=== PATIENT | male | born 1955 | race Caucasian/White ===

== ENCOUNTER 2017-12-15 18:25 | Emergency (ER) | payer OTHER ==
[~2017-12-15] VITALS: Ht 177.8 cm; Wt 74.8 kg
[2017-12-15 19:05] VITALS: Ht 177.8 cm; Wt 74.8 kg
[2017-12-15 21:40] LABS: BASOPHIL % 1.3 % (0-2); PLATELET COUNT 127 x10^3mcL (130-400); RED CELL DISTRIBUTION WIDTH 15.3 % (11.5-14.5)
[2017-12-15 21:47] LABS: CALCIUM 8.2 mg/dL (8.5-10.1); CARBON DIOXIDE 27.7 mmol/L (21-32); CHLORIDE SERUM 104 mmol/L (98-107); CREATININE SERUM 0.6 mg/dL (0.7-1.3); GFR1 > 60 mL/min; GLUCOSE SERUM 82 mg/dL (74-106); POTASSIUM SERUM 3.6 mmol/L (3.5-5.1); SODIUM SERUM 144 mmol/L (136-145)
[2017-12-15 22:02] LABS: ALBUMIN 3.4 g/dL (3.4-5.0); ALKALINE PHOSPHATASE 100 U/L (46-116); ALT/SGPT 51 U/L (16-63); AST/SGOT 113 U/L (15-37); BILIRUBIN TOTAL 0.6 mg/dL (0.20-1.00); FREE T4 1.07 ng/dL (0.76-1.46); TOTAL PROTEIN, SERUM 7.6 g/dL (6.4-8.2)
[2017-12-16 00:50] VITALS: BP 115/65
== END 2017-12-16 00:50 | disposition short-term general hospital (02) ==
LOC: ED 18:25
PROVIDERS: Emergency Medicine
DX: S06.5X0A Traumatic subdural hemorrhage without loss of consciousness, initial encounter (principal); F10.129 Alcohol abuse with intoxication, unspecified; W18.30XA Fall on same level, unspecified, initial encounter; Y93.89 Activity, other specified; Y99.8 Other external cause status; Y92.89 Other specified places as the place of occurrence of the external cause
CPT/HCPCS: 36415; 83880; 84439; 87804; 90715; G0480

== ENCOUNTER 2018-01-02 18:16 | Emergency (ER) | payer OTHER ==
[~2018-01-02] VITALS: Ht 185.4 cm; Wt 81.6 kg
[2018-01-02 19:56] LABS: PLATELET COUNT 161 x10^3mcL (130-400)
[2018-01-02 19:57] LABS: BASOPHIL % 2.2 % (0-2)
[2018-01-02 20:04] LABS: ALKALINE PHOSPHATASE 108 U/L (46-116); ALT/SGPT 49 U/L (16-63); AST/SGOT 93 U/L (15-37); BILIRUBIN TOTAL 0.67 mg/dL (0.20-1.00); CALCIUM 8.3 mg/dL (8.5-10.1); CARBON DIOXIDE 27.5 mmol/L (21-32); CHLORIDE SERUM 105 mmol/L (98-107); CREATININE SERUM 0.7 mg/dL (0.7-1.3); GFR1 > 60 mL/min; GLUCOSE SERUM 79 mg/dL (74-106); MAGNESIUM 2.3 mg/dL (1.8-2.4); SODIUM SERUM 143 mmol/L (136-145); TOTAL PROTEIN, SERUM 7.5 g/dL (6.4-8.2)
[2018-01-02 20:06] LABS: ALBUMIN 3.2 g/dL (3.4-5.0)
[2018-01-02 20:08] LABS: POTASSIUM SERUM 2.9 mmol/L (3.5-5.1)
[2018-01-03 08:26] LABS: CALCIUM 7.7 mg/dL (8.5-10.1); CARBON DIOXIDE 24.6 mmol/L (21-32); CHLORIDE SERUM 103 mmol/L (98-107); CREATININE SERUM 0.6 mg/dL (0.7-1.3); GFR1 > 60 mL/min; GLUCOSE SERUM 115 mg/dL (74-106); POTASSIUM SERUM 3.5 mmol/L (3.5-5.1); SODIUM SERUM 142 mmol/L (136-145)
[2018-01-03 09:19] LABS: MAGNESIUM 2.1 mg/dL (1.8-2.4); PHOSPHOROUS 2.5 mg/dL (2.5-4.9)
[2018-01-03 09:21] LABS: CHOLESTEROL/HDL RATIO 1.6
[2018-01-03 09:32] LABS: T3 TOTAL 0.73 ng/mL
[2018-01-03 09:46] LABS: FREE T4 0.87 ng/dL (0.76-1.46)
[2018-01-03 10:14] VITALS: BP 142/74
== END 2018-01-03 10:15 | disposition home or self-care (01) ==
LOC: ED 18:16
PROVIDERS: Emergency Medicine; Family Medicine
DX: S01.81XA Laceration without foreign body of other part of head, initial encounter (principal); M41.9 Scoliosis, unspecified; F10.129 Alcohol abuse with intoxication, unspecified; W19.XXXA Unspecified fall, initial encounter; Y93.89 Activity, other specified; Y92.89 Other specified places as the place of occurrence of the external cause; Y99.8 Other external cause status
CPT/HCPCS: 83880; 84439; G0480; J3411; J3475; J3490; J7030; Q0092

== ENCOUNTER 2018-03-12 11:27 | Emergency (ER) | payer OTHER ==
[~2018-03-12] VITALS: Ht 182.9 cm; Wt 74.8 kg
[2018-03-12 11:31] VITALS: Ht 182.9 cm; Wt 74.8 kg
[2018-03-12 14:31] VITALS: BP 112/72
== END 2018-03-12 14:32 | disposition home or self-care (01) ==
LOC: ED 11:27
DX: S60.411A Abrasion of left index finger, initial encounter (principal); X58.XXXA Exposure to other specified factors, initial encounter; Y93.89 Activity, other specified; Y92.89 Other specified places as the place of occurrence of the external cause; Y99.8 Other external cause status
CPT/HCPCS: 90715; Q0092

== ENCOUNTER 2018-03-25 17:36 | Emergency (ER) | payer OTHER ==
[~2018-03-25] VITALS: Ht 182.9 cm; Wt 70.3 kg
[2018-03-25 17:49] VITALS: Ht 182.9 cm; Wt 70.3 kg
[2018-03-25 20:09] VITALS: BP 96/55
== END 2018-03-25 20:09 | disposition home or self-care (01) ==
LOC: ED 17:36
DX: L97.929 Non-pressure chronic ulcer of unspecified part of left lower leg with unspecified severity (principal)
CPT/HCPCS: J1885

== ENCOUNTER 2018-04-05 11:49 | Inpatient (IN) | payer OTHER ==
[~2018-04-05] VITALS: Ht 182.9 cm; Wt 75.7 kg
[2018-04-05 13:26] LABS: ALKALINE PHOSPHATASE 141 U/L (46-116); ALT/SGPT 32 U/L (16-63); AST/SGOT 55 U/L (15-37); BILIRUBIN TOTAL 0.33 mg/dL (0.20-1.00); CARBON DIOXIDE 29.2 mmol/L (21-32); CHLORIDE SERUM 104 mmol/L (98-107); CREATININE SERUM 0.6 mg/dL (0.7-1.3); GFR1 > 60 mL/min; GLUCOSE SERUM 106 mg/dL (74-106); SODIUM SERUM 143 mmol/L (136-145); TOTAL PROTEIN, SERUM 6.7 g/dL (6.4-8.2)
[2018-04-05 13:27] LABS: ALBUMIN 2.2 g/dL (3.4-5.0); CHOLESTEROL 102 mg/dL (<200); HDL CHOLESTEROL 80 mg/dL (40-60); POTASSIUM SERUM 2.9 mmol/L (3.5-5.1)
[2018-04-05 13:40] LABS: FREE T4 0.99 ng/dL (0.76-1.46); FREE THYROXINE INDEX 2.2 ug/dL (1.4-4.5); T4(THYROXINE) 5.7 ug/dL (4.7-13.3)
[2018-04-05 13:48] LABS: BASOPHIL % 0.7 % (0-2); PLATELET COUNT 195 x10^3mcL (130-400); T3 TOTAL 0.85 ng/mL
[2018-04-05 14:01] LABS: RED CELL DISTRIBUTION WIDTH 16.4 % (11.5-14.5)
[2018-04-05 16:41] LABS: TOTAL IRON BINDING CAPACITY 277 ug/dL (250-450)
[2018-04-05 16:45] LABS: IRON 21 ug/dL (65-170)
[2018-04-05 16:56] VITALS: BP 100/66
[2018-04-05 16:56] LABS: RED BLOOD CELLS 2.68 M/mm3 (4.52-5.90)
[2018-04-05 16:59] LABS: MAGNESIUM 2.7 mg/dL (1.8-2.4); PHOSPHOROUS 3.7 mg/dL (2.5-4.9)
[2018-04-05 20:48] VITALS: BP 95/51
[2018-04-05 21:55] LABS: CALCIUM 7.4 mg/dL (8.5-10.1); CARBON DIOXIDE 29.5 mmol/L (21-32); CHLORIDE SERUM 110 mmol/L (98-107); CREATININE SERUM 0.4 mg/dL (0.7-1.3); GFR1 > 60 mL/min; GLUCOSE SERUM 84 mg/dL (74-106); SODIUM SERUM 145 mmol/L (136-145)
[2018-04-05 21:58] LABS: POTASSIUM SERUM 2.8 mmol/L (3.5-5.1)
[2018-04-06 05:43] VITALS: BP 105/53
[2018-04-06 05:54] LABS: microscopic required? NO
[2018-04-06 06:14] LABS: UA SPECIFIC GRAVITY 1.015 (1.005-1.035); urine erythrocyte NEGATIVE (NEGATIVE)
[2018-04-06 06:26] LABS: AMPHETAMINE QUAL UR NONE DETECTED (NEG <=1000)
[2018-04-06 06:31] LABS: CALCIUM 7.7 mg/dL (8.5-10.1); CARBON DIOXIDE 27.2 mmol/L (21-32); CHLORIDE SERUM 116 mmol/L (98-107); CREATININE SERUM 0.5 mg/dL (0.7-1.3); GFR1 > 60 mL/min; GLUCOSE SERUM 77 mg/dL (74-106); MAGNESIUM 2.4 mg/dL (1.8-2.4); PHOSPHOROUS 2.6 mg/dL (2.5-4.9); POTASSIUM SERUM 4.6 mmol/L (3.5-5.1); SODIUM SERUM 145 mmol/L (136-145)
[2018-04-06 06:47] LABS: CHOLESTEROL 90 mg/dL (<200); CHOLESTEROL/HDL RATIO 1.3; HDL CHOLESTEROL 69 mg/dL (40-60); TRIGLYCERIDES 27 mg/dL (<150)
[2018-04-06 07:01] LABS: BASOPHIL % 0.3 % (0-2); PLATELET COUNT 163 x10^3mcL (130-400); RED CELL DISTRIBUTION WIDTH 16.3 % (11.5-14.5)
[2018-04-06 08:30] VITALS: BP 100/49
[2018-04-06 14:23] VITALS: BP 120/79
[2018-04-06 18:12] VITALS: BP 126/83
[2018-04-06 21:39] VITALS: BP 107/75
[2018-04-07] VITALS (9 sets, daily range): BP systolic 74–92; BP diastolic 43–68
[2018-04-07 06:48] LABS: BASOPHIL % 0.2 % (0-2); PLATELET COUNT 152 x10^3mcL (130-400)
[2018-04-07 06:55] LABS: CALCIUM 7.7 mg/dL (8.5-10.1); CARBON DIOXIDE 25.4 mmol/L (21-32); CHLORIDE SERUM 112 mmol/L (98-107); CREATININE SERUM 0.4 mg/dL (0.7-1.3); GFR1 > 60 mL/min; GLUCOSE SERUM 98 mg/dL (74-106); RED CELL DISTRIBUTION WIDTH 16.5 % (11.5-14.5); SODIUM SERUM 148 mmol/L (136-145)
[2018-04-08] VITALS (11 sets, daily range): BP systolic 79–123; BP diastolic 46–84
[2018-04-08 05:42] LABS: BASOPHIL % 0.1 % (0-2)
[2018-04-08 05:45] LABS: PLATELET COUNT 121 x10^3mcL (130-400); RED CELL DISTRIBUTION WIDTH 16.2 % (11.5-14.5)
[2018-04-08 05:56] LABS: CALCIUM 7.3 mg/dL (8.5-10.1); CARBON DIOXIDE 25.9 mmol/L (21-32); CHLORIDE SERUM 120 mmol/L (98-107); CREATININE SERUM 0.6 mg/dL (0.7-1.3); GFR1 > 60 mL/min; GLUCOSE SERUM 66 mg/dL (74-106); POTASSIUM SERUM 3.3 mmol/L (3.5-5.1); SODIUM SERUM 153 mmol/L (136-145)
[2018-04-08 15:57] LABS: CALCIUM 7.1 mg/dL (8.5-10.1); CARBON DIOXIDE 25.4 mmol/L (21-32); CHLORIDE SERUM 119 mmol/L (98-107); CREATININE SERUM 0.6 mg/dL (0.7-1.3); GFR1 > 60 mL/min; GLUCOSE SERUM 116 mg/dL (74-106); SODIUM SERUM 150 mmol/L (136-145)
[2018-04-08 16:01] LABS: POTASSIUM SERUM 2.8 mmol/L (3.5-5.1)
[2018-04-08 22:10] LABS: CALCIUM 7.1 mg/dL (8.5-10.1); CARBON DIOXIDE 23.7 mmol/L (21-32); CHLORIDE SERUM 118 mmol/L (98-107); CREATININE SERUM 0.5 mg/dL (0.7-1.3); GFR1 > 60 mL/min; GLUCOSE SERUM 96 mg/dL (74-106); POTASSIUM SERUM 3.2 mmol/L (3.5-5.1); SODIUM SERUM 149 mmol/L (136-145)
[2018-04-09] VITALS (18 sets, daily range): BP systolic 85–119; BP diastolic 52–82
[2018-04-09 05:22] LABS: BASOPHIL % 0.4 % (0-2)
[2018-04-09 05:26] LABS: CALCIUM 7.4 mg/dL (8.5-10.1); CARBON DIOXIDE 22.9 mmol/L (21-32); CHLORIDE SERUM 121 mmol/L (98-107); CREATININE SERUM 0.5 mg/dL (0.7-1.3); GFR1 > 60 mL/min; GLUCOSE SERUM 77 mg/dL (74-106); PHOSPHOROUS 2.6 mg/dL (2.5-4.9); POTASSIUM SERUM 3.5 mmol/L (3.5-5.1); SODIUM SERUM 150 mmol/L (136-145)
[2018-04-09 05:28] LABS: PLATELET COUNT 89 x10^3mcL (130-400); RED CELL DISTRIBUTION WIDTH 16.6 % (11.5-14.5)
[2018-04-09 05:29] LABS: rbc morphology (normal/abnorm) ABNORMAL (NORMAL)
[2018-04-09 12:01] LABS: CALCIUM 7.2 mg/dL (8.5-10.1); CARBON DIOXIDE 23.1 mmol/L (21-32); CHLORIDE SERUM 120 mmol/L (98-107); CREATININE SERUM 0.5 mg/dL (0.7-1.3); GFR1 > 60 mL/min; GLUCOSE SERUM 77 mg/dL (74-106); POTASSIUM SERUM 3.3 mmol/L (3.5-5.1); SODIUM SERUM 150 mmol/L (136-145)
[2018-04-09 17:08] LABS: RAPID PLASMA REAGIN Non Reactive (Non Reactive)
[2018-04-09 21:25] LABS: CALCIUM 7.2 mg/dL (8.5-10.1); CARBON DIOXIDE 24.6 mmol/L (21-32); CHLORIDE SERUM 120 mmol/L (98-107); CREATININE SERUM 0.5 mg/dL (0.7-1.3); GFR1 > 60 mL/min; GLUCOSE SERUM 85 mg/dL (74-106); POTASSIUM SERUM 3.8 mmol/L (3.5-5.1); SODIUM SERUM 147 mmol/L (136-145)
[2018-04-10] VITALS (20 sets, daily range): BP systolic 87–98; BP diastolic 51–63
[2018-04-10 05:35] LABS: PLATELET COUNT 75 x10^3mcL (130-400); RED CELL DISTRIBUTION WIDTH 16.8 % (11.5-14.5)
[2018-04-10 05:41] LABS: CALCIUM 7.6 mg/dL (8.5-10.1); CARBON DIOXIDE 25.9 mmol/L (21-32); CHLORIDE SERUM 118 mmol/L (98-107); CREATININE SERUM 0.5 mg/dL (0.7-1.3); GFR1 > 60 mL/min; GLUCOSE SERUM 100 mg/dL (74-106); POTASSIUM SERUM 3.8 mmol/L (3.5-5.1); SODIUM SERUM 150 mmol/L (136-145)
[2018-04-10 05:49] LABS: BAND NEUTROPHIL 2 % (0-10); MONOCYTE 5 % (0-7); SEGMENTED NEUTROPHILS 82 % (37-75)
[2018-04-10 05:50] LABS: rbc morphology (normal/abnorm) ABNORMAL (NORMAL)
[2018-04-10 05:51] LABS: ovalocyte/elliptocyte 1+
[2018-04-10 12:26] LABS: CALCIUM 7.3 mg/dL (8.5-10.1); CARBON DIOXIDE 25.3 mmol/L (21-32); CHLORIDE SERUM 120 mmol/L (98-107); CREATININE SERUM 0.5 mg/dL (0.7-1.3); GFR1 > 60 mL/min; GLUCOSE SERUM 99 mg/dL (74-106); POTASSIUM SERUM 3.4 mmol/L (3.5-5.1); SODIUM SERUM 144 mmol/L (136-145)
[2018-04-11] VITALS (17 sets, daily range): BP systolic 85–110; BP diastolic 52–68
[2018-04-11 04:51] LABS: BASOPHIL % 0.2 % (0-2)
[2018-04-11 04:56] LABS: PLATELET COUNT 53 x10^3mcL (130-400); RED CELL DISTRIBUTION WIDTH 17.1 % (11.5-14.5)
[2018-04-11 04:57] LABS: rbc morphology (normal/abnorm) ABNORMAL (NORMAL)
[2018-04-11 04:59] LABS: CALCIUM 7.7 mg/dL (8.5-10.1); CARBON DIOXIDE 25.9 mmol/L (21-32); CHLORIDE SERUM 118 mmol/L (98-107); CREATININE SERUM 0.6 mg/dL (0.7-1.3); GFR1 > 60 mL/min; GLUCOSE SERUM 112 mg/dL (74-106); POTASSIUM SERUM 3.8 mmol/L (3.5-5.1); SODIUM SERUM 144 mmol/L (136-145)
[2018-04-12] VITALS (17 sets, daily range): BP systolic 90–116; BP diastolic 40–75
[2018-04-12 05:01] LABS: BASOPHIL % 1.9 % (0-2); PLATELET COUNT 55 x10^3mcL (130-400); RED CELL DISTRIBUTION WIDTH 16.8 % (11.5-14.5)
[2018-04-12 05:03] LABS: rbc morphology (normal/abnorm) ABNORMAL (NORMAL)
[2018-04-12 05:06] LABS: CALCIUM 7.7 mg/dL (8.5-10.1); CARBON DIOXIDE 26.8 mmol/L (21-32); CHLORIDE SERUM 112 mmol/L (98-107); CREATININE SERUM 0.5 mg/dL (0.7-1.3); GFR1 > 60 mL/min; GLUCOSE SERUM 89 mg/dL (74-106); POTASSIUM SERUM 4.1 mmol/L (3.5-5.1); SODIUM SERUM 146 mmol/L (136-145)
[2018-04-13] VITALS (17 sets, daily range): BP systolic 84–123; BP diastolic 56–79
[2018-04-13 05:17] LABS: BASOPHIL % 0.2 % (0-2)
[2018-04-13 05:19] LABS: PLATELET COUNT 64 x10^3mcL (130-400); RED CELL DISTRIBUTION WIDTH 17.9 % (11.5-14.5)
[2018-04-13 05:20] LABS: rbc morphology (normal/abnorm) ABNORMAL (NORMAL)
[2018-04-13 05:28] LABS: CALCIUM 8.1 mg/dL (8.5-10.1); CARBON DIOXIDE 30.2 mmol/L (21-32); CHLORIDE SERUM 108 mmol/L (98-107); CREATININE SERUM 0.5 mg/dL (0.7-1.3); GFR1 > 60 mL/min; GLUCOSE SERUM 81 mg/dL (74-106); PHOSPHOROUS 4.3 mg/dL (2.5-4.9); POTASSIUM SERUM 3.8 mmol/L (3.5-5.1); SODIUM SERUM 143 mmol/L (136-145)
[2018-04-13 16:23] LABS: BASOPHIL % 0.3 % (0-2)
[2018-04-13 16:33] LABS: PLATELET COUNT 68 x10^3mcL (130-400)
[2018-04-14] VITALS (18 sets, daily range): BP systolic 85–132; BP diastolic 51–91
[2018-04-14 04:30] LABS: BASOPHIL % 0.4 % (0-2)
[2018-04-14 04:34] LABS: PLATELET COUNT 79 x10^3mcL (130-400); RED CELL DISTRIBUTION WIDTH 19.2 % (11.5-14.5)
[2018-04-14 04:40] LABS: CALCIUM 7.9 mg/dL (8.5-10.1); CARBON DIOXIDE 30.7 mmol/L (21-32); CHLORIDE SERUM 106 mmol/L (98-107); CREATININE SERUM 0.5 mg/dL (0.7-1.3); GFR1 > 60 mL/min; GLUCOSE SERUM 102 mg/dL (74-106); POTASSIUM SERUM 3.3 mmol/L (3.5-5.1); SODIUM SERUM 141 mmol/L (136-145)
[2018-04-14 05:25] LABS: MAGNESIUM 1.9 mg/dL (1.8-2.4); PHOSPHOROUS 3.5 mg/dL (2.5-4.9)
[2018-04-15] VITALS (9 sets, daily range): BP systolic 112–140; BP diastolic 69–90; Ht 182.9 cm; Wt 75.7 kg
[2018-04-15 05:30] LABS: BASOPHIL % 0.3 % (0-2)
[2018-04-15 05:37] LABS: PLATELET COUNT 122 x10^3mcL (130-400); RED CELL DISTRIBUTION WIDTH 19.3 % (11.5-14.5)
[2018-04-15 05:44] LABS: CALCIUM 8.1 mg/dL (8.5-10.1); CARBON DIOXIDE 33.1 mmol/L (21-32); CHLORIDE SERUM 107 mmol/L (98-107); CREATININE SERUM 0.4 mg/dL (0.7-1.3); GFR1 > 60 mL/min; GLUCOSE SERUM 153 mg/dL (74-106); MAGNESIUM 1.9 mg/dL (1.8-2.4); PHOSPHOROUS 3.5 mg/dL (2.5-4.9); POTASSIUM SERUM 3.4 mmol/L (3.5-5.1); SODIUM SERUM 143 mmol/L (136-145)
[2018-04-16 03:32] VITALS: BP 131/92
[2018-04-16 05:21] LABS: BASOPHIL % 0.6 % (0-2); PLATELET COUNT 183 x10^3mcL (130-400)
[2018-04-16 05:26] LABS: RED CELL DISTRIBUTION WIDTH 18.9 % (11.5-14.5)
[2018-04-16 05:32] LABS: CALCIUM 8.6 mg/dL (8.5-10.1); CARBON DIOXIDE 28.4 mmol/L (21-32); CHLORIDE SERUM 108 mmol/L (98-107); CREATININE SERUM 0.3 mg/dL (0.7-1.3); GFR1 > 60 mL/min; GLUCOSE SERUM 79 mg/dL (74-106); POTASSIUM SERUM 3.1 mmol/L (3.5-5.1); SODIUM SERUM 146 mmol/L (136-145)
[2018-04-16 08:15] VITALS: BP 120/81
[2018-04-16 12:41] VITALS: BP 101/67
[2018-04-16 17:15] VITALS: BP 110/71
[2018-04-16 19:20] VITALS: BP 113/75
[2018-04-17 05:32] VITALS: BP 118/77
[2018-04-17 07:05] LABS: CALCIUM 8.2 mg/dL (8.5-10.1); CARBON DIOXIDE 25.7 mmol/L (21-32); CHLORIDE SERUM 107 mmol/L (98-107); CREATININE SERUM 0.5 mg/dL (0.7-1.3); GFR1 > 60 mL/min; GLUCOSE SERUM 71 mg/dL (74-106); PHOSPHOROUS 3.7 mg/dL (2.5-4.9); POTASSIUM SERUM 3.2 mmol/L (3.5-5.1); SODIUM SERUM 143 mmol/L (136-145)
[2018-04-17 07:21] LABS: BASOPHIL % 0.7 % (0-2); PLATELET COUNT 288 x10^3mcL (130-400)
[2018-04-17 07:25] LABS: RED CELL DISTRIBUTION WIDTH 19.1 % (11.5-14.5)
[2018-04-17 10:25] VITALS: BP 118/80
[2018-04-17 13:43] VITALS: BP 115/65
[2018-04-17 17:29] VITALS: BP 126/79
[2018-04-17 20:44] VITALS: BP 137/86
[2018-04-18] VITALS (7 sets, daily range): BP systolic 104–125; BP diastolic 67–79
[2018-04-19 06:03] VITALS: BP 112/70
[2018-04-19 06:59] LABS: CALCIUM 8.4 mg/dL (8.5-10.1); CARBON DIOXIDE 26.7 mmol/L (21-32); CHLORIDE SERUM 102 mmol/L (98-107); CREATININE SERUM 0.5 mg/dL (0.7-1.3); GFR1 > 60 mL/min; GLUCOSE SERUM 100 mg/dL (74-106); PHOSPHOROUS 4.1 mg/dL (2.5-4.9); POTASSIUM SERUM 3.4 mmol/L (3.5-5.1); SODIUM SERUM 138 mmol/L (136-145)
[2018-04-19 07:27] LABS: BASOPHIL % 0.8 % (0-2)
[2018-04-19 07:29] LABS: PLATELET COUNT 430 x10^3mcL (130-400)
[2018-04-19 09:58] VITALS: BP 101/68
[2018-04-19 14:00] VITALS: BP 86/53
[2018-04-19 15:23] VITALS: BP 119/64
[2018-04-19 17:58] VITALS: BP 117/80
[2018-04-19 21:41] VITALS: BP 119/86
[2018-04-20 05:59] VITALS: BP 130/76
[2018-04-20 06:42] LABS: CALCIUM 8.3 mg/dL (8.5-10.1); CHLORIDE SERUM 104 mmol/L (98-107); CREATININE SERUM 0.4 mg/dL (0.7-1.3); GFR1 > 60 mL/min; GLUCOSE SERUM 105 mg/dL (74-106); MAGNESIUM 1.9 mg/dL (1.8-2.4); PHOSPHOROUS 3.5 mg/dL (2.5-4.9); SODIUM SERUM 140 mmol/L (136-145)
[2018-04-20 06:51] LABS: PLATELET COUNT 476 x10^3mcL (130-400); RED CELL DISTRIBUTION WIDTH 17.9 % (11.5-14.5)
[2018-04-20 07:13] LABS: POTASSIUM SERUM 2.9 mmol/L (3.5-5.1)
[2018-04-20 09:12] VITALS: BP 122/79
[2018-04-20 12:53] VITALS: BP 91/55
[2018-04-20 17:55] VITALS: BP 115/78
[2018-04-20 21:14] VITALS: BP 142/71
[2018-04-21 05:31] VITALS: BP 103/63
[2018-04-21 06:27] LABS: CALCIUM 8.3 mg/dL (8.5-10.1); CHLORIDE SERUM 105 mmol/L (98-107); CREATININE SERUM 0.4 mg/dL (0.7-1.3); GFR1 > 60 mL/min; GLUCOSE SERUM 128 mg/dL (74-106); MAGNESIUM 1.9 mg/dL (1.8-2.4); PHOSPHOROUS 3.2 mg/dL (2.5-4.9); SODIUM SERUM 142 mmol/L (136-145)
[2018-04-21 06:38] LABS: BASOPHIL % 1.1 % (0-2)
[2018-04-21 07:00] LABS: PLATELET COUNT 462 x10^3mcL (130-400); RED CELL DISTRIBUTION WIDTH 18.1 % (11.5-14.5)
[2018-04-21 07:05] LABS: POTASSIUM SERUM 2.9 mmol/L (3.5-5.1)
[2018-04-21 09:45] VITALS: BP 132/84
[2018-04-21 13:09] LABS: CALCIUM 8.4 mg/dL (8.5-10.1); CARBON DIOXIDE 31.1 mmol/L (21-32); CHLORIDE SERUM 107 mmol/L (98-107); CREATININE SERUM 0.4 mg/dL (0.7-1.3); GFR1 > 60 mL/min; GLUCOSE SERUM 107 mg/dL (74-106); POTASSIUM SERUM 3.8 mmol/L (3.5-5.1); SODIUM SERUM 142 mmol/L (136-145)
[2018-04-21 13:50] VITALS: BP 140/92
[2018-04-21 17:15] VITALS: BP 131/82
[2018-04-21 21:23] VITALS: BP 134/88
[2018-04-22 07:04] LABS: CARBON DIOXIDE 30.9 mmol/L (21-32); CHLORIDE SERUM 104 mmol/L (98-107); CREATININE SERUM 0.4 mg/dL (0.7-1.3); GFR1 > 60 mL/min; GLUCOSE SERUM 104 mg/dL (74-106); PHOSPHOROUS 4.4 mg/dL (2.5-4.9); POTASSIUM SERUM 3.7 mmol/L (3.5-5.1); SODIUM SERUM 140 mmol/L (136-145)
[2018-04-22 07:05] LABS: BASOPHIL % 1.7 % (0-2)
[2018-04-22 07:18] LABS: PLATELET COUNT 620 x10^3mcL (130-400); RED CELL DISTRIBUTION WIDTH 18.4 % (11.5-14.5)
[2018-04-22 08:55] VITALS: BP 116/79
[2018-04-22 12:43] VITALS: BP 166/67
[2018-04-22 18:04] VITALS: BP 129/89
[2018-04-22 22:12] VITALS: BP 125/81
[2018-04-23 06:06] VITALS: BP 139/75
[2018-04-23 06:48] LABS: CALCIUM 8.9 mg/dL (8.5-10.1); CARBON DIOXIDE 27.1 mmol/L (21-32); CHLORIDE SERUM 102 mmol/L (98-107); CREATININE SERUM 0.4 mg/dL (0.7-1.3); GFR1 > 60 mL/min; GLUCOSE SERUM 95 mg/dL (74-106); MAGNESIUM 1.9 mg/dL (1.8-2.4); PHOSPHOROUS 3.7 mg/dL (2.5-4.9); POTASSIUM SERUM 3.3 mmol/L (3.5-5.1); SODIUM SERUM 139 mmol/L (136-145)
[2018-04-23 06:57] LABS: BASOPHIL % 1.9 % (0-2)
[2018-04-23 07:17] LABS: PLATELET COUNT 644 x10^3mcL (130-400); RED CELL DISTRIBUTION WIDTH 19.3 % (11.5-14.5)
[2018-04-23 10:57] VITALS: BP 102/69
[2018-04-23 11:46] VITALS: BP 95/62
[2018-04-23 13:22] VITALS: BP 86/50
[2018-04-23 17:45] VITALS: BP 102/72
[2018-04-23 20:30] VITALS: BP 116/77
[2018-04-24 05:56] VITALS: BP 125/76
[2018-04-24 06:54] LABS: CALCIUM 8.7 mg/dL (8.5-10.1); CARBON DIOXIDE 27.6 mmol/L (21-32); CHLORIDE SERUM 104 mmol/L (98-107); CREATININE SERUM 0.5 mg/dL (0.7-1.3); GFR1 > 60 mL/min; GLUCOSE SERUM 106 mg/dL (74-106); POTASSIUM SERUM 3.6 mmol/L (3.5-5.1); SODIUM SERUM 138 mmol/L (136-145)
[2018-04-24 07:17] LABS: BASOPHIL % 1.9 % (0-2)
[2018-04-24 07:18] LABS: PLATELET COUNT 604 x10^3mcL (130-400); RED CELL DISTRIBUTION WIDTH 18.7 % (11.5-14.5)
[2018-04-24 09:28] VITALS: BP 105/67
[2018-04-24 13:47] VITALS: BP 104/66
[2018-04-24 16:30] VITALS: BP 112/72
[2018-04-24 22:00] VITALS: BP 118/72
[2018-04-25 05:33] VITALS: BP 115/75
[2018-04-25 06:28] LABS: CALCIUM 8.7 mg/dL (8.5-10.1); CARBON DIOXIDE 31.2 mmol/L (21-32); CHLORIDE SERUM 104 mmol/L (98-107); CREATININE SERUM 0.5 mg/dL (0.7-1.3); GFR1 > 60 mL/min; GLUCOSE SERUM 93 mg/dL (74-106); POTASSIUM SERUM 3.3 mmol/L (3.5-5.1); SODIUM SERUM 140 mmol/L (136-145)
[2018-04-25 06:57] LABS: BASOPHIL % 2.3 % (0-2); RED CELL DISTRIBUTION WIDTH 18.3 % (11.5-14.5)
[2018-04-25 08:28] LABS: PLATELET COUNT 745 x10^3mcL (130-400)
[2018-04-25 14:00] VITALS: BP 111/70
[2018-04-25 17:46] VITALS: BP 118/76
[2018-04-25 21:04] VITALS: BP 105/72
[2018-04-26 05:36] VITALS: BP 98/57
[2018-04-26 07:02] LABS: BASOPHIL % 1.3 % (0-2)
[2018-04-26 07:19] LABS: CALCIUM 9.1 mg/dL (8.5-10.1); CHLORIDE SERUM 103 mmol/L (98-107); CREATININE SERUM 0.4 mg/dL (0.7-1.3); GFR1 > 60 mL/min; GLUCOSE SERUM 76 mg/dL (74-106); MAGNESIUM 2.1 mg/dL (1.8-2.4); PHOSPHOROUS 4.2 mg/dL (2.5-4.9); POTASSIUM SERUM 3.4 mmol/L (3.5-5.1); SODIUM SERUM 139 mmol/L (136-145)
[2018-04-26 07:40] LABS: RED CELL DISTRIBUTION WIDTH 18.8 % (11.5-14.5)
[2018-04-26 08:21] LABS: PLATELET COUNT 719 x10^3mcL (130-400)
[2018-04-26 09:03] VITALS: BP 120/72
[2018-04-26 17:40] VITALS: BP 103/68
[2018-04-26 22:33] VITALS: BP 95/56
[2018-04-27 07:07] LABS: CALCIUM 9.2 mg/dL (8.5-10.1); CARBON DIOXIDE 30.5 mmol/L (21-32); CHLORIDE SERUM 104 mmol/L (98-107); CREATININE SERUM 0.4 mg/dL (0.7-1.3); GFR1 > 60 mL/min; GLUCOSE SERUM 88 mg/dL (74-106); PHOSPHOROUS 4.4 mg/dL (2.5-4.9); POTASSIUM SERUM 4.2 mmol/L (3.5-5.1); SODIUM SERUM 139 mmol/L (136-145)
[2018-04-27 07:34] LABS: BASOPHIL % 2.1 % (0-2); PLATELET COUNT 742 x10^3mcL (130-400); RED CELL DISTRIBUTION WIDTH 18.6 % (11.5-14.5)
[2018-04-27 10:01] VITALS: BP 92/58
[2018-04-27] MEDS ORDERED: LIB5 PO (14:48)
[2018-04-27] MEDS ORDERED: SERO100 PO (14:48)
[2018-04-27] MEDS ORDERED: IPRATROPIUM BROM3 M2 HHN ×2 (14:49→14:51)
[2018-04-27] MEDS ORDERED: NIC14 TD (14:49)
[2018-04-27] MEDS ORDERED: DEP250 PO (14:49)
[2018-04-27] MEDS ORDERED: MVIL NG (14:49)
[2018-04-27] MEDS ORDERED: BEN25 PO (14:50)
[2018-04-27] MEDS ORDERED: ATI2I IV (14:50)
[2018-04-27] MEDS ORDERED: QUETIAPINE FUMA25 M1 PO (14:50)
[2018-04-27] MEDS ORDERED: BAY PO (14:51)
[2018-04-27] MEDS ORDERED: VITAMIN B-650 M1 PO (14:51)
[2018-04-27] MEDS ORDERED: LIPI10 GT (14:51)
[2018-04-27 14:52] VITALS: BP 92/58
[2018-04-27] MEDS ORDERED: ZOFI IV (14:52)
[2018-04-27] MEDS ORDERED: ZINC SULFATE220 MG PO (14:52)
[2018-04-27 17:09] VITALS: BP 90/64
== END 2018-04-27 18:09 | DRG 720 ==
LOC: ED 11:49 → DU 14:23 → IC 14:23 → MU 14:23 → DU 16:21 → IC 04-08 02:00 → DU 04-16 12:40 → MU 04-26 08:10
PROVIDERS: Emergency Medicine; Family Medicine; Student in an Organized Health Care Education/Training Program
PROC: 5A1955Z Respiratory Ventilation, Greater than 96 Consecutive Hours (ICD-10-PCS; principal; 2018-04-08)
PROC: 0BH17EZ Insertion of Endotracheal Airway into Trachea, Via Natural or Artificial Opening (ICD-10-PCS; 2018-04-08)
PROC: B548ZZA Ultrasonography of Superior Vena Cava, Guidance (ICD-10-PCS; 2018-04-08)
PROC: 02HV33Z Insertion of Infusion Device into Superior Vena Cava, Percutaneous Approach (ICD-10-PCS; 2018-04-08)
PROC: 30233N1 Transfusion of Nonautologous Red Blood Cells into Peripheral Vein, Percutaneous Approach (ICD-10-PCS; 2018-04-13)
DX: A41.9 Sepsis, unspecified organism (principal); J96.01 Acute respiratory failure with hypoxia; N17.0 Acute kidney failure with tubular necrosis; J69.0 Pneumonitis due to inhalation of food and vomit; R65.21 Severe sepsis with septic shock; G92 Toxic encephalopathy; E43 Unspecified severe protein-calorie malnutrition; K85.20 Alcohol induced acute pancreatitis without necrosis or infection; J44.9 Chronic obstructive pulmonary disease, unspecified; D64.9 Anemia, unspecified; B35.1 Tinea unguium; B88.8 Other specified infestations; F10.229 Alcohol dependence with intoxication, unspecified; L03.116 Cellulitis of left lower limb; E87.6 Hypokalemia; L03.115 Cellulitis of right lower limb; I50.9 Heart failure, unspecified; E83.42 Hypomagnesemia; K76.0 Fatty (change of) liver, not elsewhere classified; E83.51 Hypocalcemia; E83.41 Hypermagnesemia; E87.8 Other disorders of electrolyte and fluid balance, not elsewhere classified; N39.0 Urinary tract infection, site not specified; I48.0 Paroxysmal atrial fibrillation; D47.3 Essential (hemorrhagic) thrombocythemia; F17.210 Nicotine dependence, cigarettes, uncomplicated; Y90.0 Blood alcohol level of less than 20 mg/100 ml; F32.9 Major depressive disorder, single episode, unspecified; E66.01 Morbid (severe) obesity due to excess calories; R68.0 Hypothermia, not associated with low environmental temperature; Z59.0 Homelessness; Z87.01 Personal history of pneumonia (recurrent); Z68.1 Body mass index [BMI] 19.9 or less, adult; Z72.89 Other problems related to lifestyle
CPT/HCPCS: 36556; 36600; 82962; 83880; 84439; 92526-GN; 92610-GN; 92611-GN; 94150; 97110-GP; 97116-GP; 97530-GP; A4628; C9113; G0480; J0132; J0696; J1642; J1644; J1885; J1940; J1956; J2060; J2250; J2543; J2704; J2916; J3010; J3230; J3411; J3420; J3480; J3486; J3490; J7030; J7040; J7050; J7620; P9016; Q0092; Q0163; Q9967